=== PATIENT | female | born 1975 | race Hispanic/Latino ===

== ENCOUNTER 2020-11-02 12:08 | Outpatient (CLI) | payer MEDICARE ==
--- NOTE | 2020-11-02 14:35 | RAD ---
LEFT WRIST THREE VIEWS: 11/02/20 An old healed distal ulnar shaft fracture is noted. No current fracture was demonstrated. The carpal bones appear intact as well. IMPRESSION: No acute finding. POS: HOME
--- NOTE | 2020-11-02 14:36 | RAD ---
LEFT HAND THREE VIEWS: 11/02/20 No fracture, dislocation, or joint abnormality was seen. The carpal relationships are normal. IMPRESSION: No acute finding. POS: HOME
== END 2020-11-02 12:09 | disposition home or self-care (01) ==
LOC: BURRAD 12:08
PROVIDERS: ATTEND Nurse Practitioner Family
DX: M25.532 Pain in left wrist (principal)